=== PATIENT | male | born 2000 | race Two or more races ===

== ENCOUNTER 2022-02-15 09:43 | Emergency (ER) | payer OTHER ==
[~2022-02-15] VITALS: Ht 175.3 cm; Wt 72.1 kg
[2022-02-15] MEDS ORDERED: KETOROLAC 60MG 2ML VIAL IM ONE (11:20)
[2022-02-15] MEDS ORDERED: ONDANSETRON 4MG ORAL DISINTEGRATING TAB PO ONE (11:20)
[2022-02-15] MEDS ORDERED: AMOX500C PO (12:15)
[2022-02-15] MEDS ORDERED: ONDA4TAB6 PO (12:15)
[2022-02-15 12:16] VITALS: BP 125/82
== END 2022-02-15 12:22 | disposition home or self-care (01) ==
LOC: M ED 09:43
DX: J02.0 Streptococcal pharyngitis (principal); J09.X9 Influenza due to identified novel influenza A virus with other manifestations
CPT/HCPCS: 87428; 87430; 96372; 99283; J1885

== ENCOUNTER 2023-02-12 13:58 | Emergency (ER) | payer OTHER ==
[~2023-02-12] VITALS: Ht 175.3 cm; Wt 72.7 kg
[~2023-02-12 13:58] MED LIST: AMOX500C PO; ONDA4TAB6 PO
[2023-02-12] MEDS ORDERED: CEPH500C PO (15:55)
[2023-02-12] MEDS ORDERED: CEPHALEXIN 500 MG CAP PO ONE (15:55)
[2023-02-12] MEDS ORDERED: POLYSOL OU (15:55)
[2023-02-12] MEDS ORDERED: POLYTRIM OPTH DROPS 10ML OU STA (16:04)
[2023-02-12 16:13] VITALS: BP 123/83; TEMP 98.5; O2SAT 99
[2023-02-12 16:17] LABS: RSV AMPLIFICATION NEGATIVE (NEGATIVE)
== END 2023-02-12 16:14 | disposition home or self-care (01) ==
LOC: M ED 13:58
DX: J02.0 Streptococcal pharyngitis (principal); H10.32 Unspecified acute conjunctivitis, left eye

== ENCOUNTER 2023-02-15 21:32 | Emergency (ER) | payer OTHER ==
[~2023-02-15] VITALS: Ht 175.3 cm; Wt 72.7 kg
[~2023-02-15 21:32] MED LIST changes: +CEPH500C PO; +POLYSOL OU
[2023-02-16 04:24] VITALS: BP 130/95
[2023-02-16] MEDS ORDERED: LIDOCAINE 1% MDV 20ML VIAL SC ONE (06:15)
[2023-02-16 07:15] VITALS: TEMP 97; O2SAT 100
== END 2023-02-16 07:30 | disposition home or self-care (01) ==
LOC: M ED 21:32
DX: L60.0 Ingrowing nail (principal)